=== PATIENT | female | born 1955 | race Caucasian/White ===

== ENCOUNTER 2016-07-22 09:39 | Outpatient (CLI) | payer OTHER ==
[~2016-07-22] VITALS: Ht 157.5 cm; Wt 53.5 kg
[2016-07-22] MEDS ORDERED: CHOL500049 PO (12:36)
[2016-07-22] MEDS ORDERED: LEVO75TA6 PO (12:36)
[2016-07-22] MEDS ORDERED: LACT1CAP39 PO (12:36)
[2016-07-23] MEDS ORDERED: HYDR-3812 PO (13:06)
== END 2016-07-22 12:41 ==
LOC: PREOP 09:39
PROVIDERS: ATTEND Surgery
DX: Z01.818 Encounter for other preprocedural examination (principal); K80.20 Calculus of gallbladder without cholecystitis without obstruction

== ENCOUNTER 2016-07-23 09:43 | Day surgery (SDC) | payer OTHER ==
[~2016-07-23] VITALS: Ht 157.5 cm; Wt 53.5 kg
[~2016-07-23 09:43] MED LIST: CHOL500049 PO; LACT1CAP39 PO; LEVO75TA6 PO
[2016-07-23] MEDS ORDERED: BUP/EPI 0.25% 1:200,000 (MARCAINE) 30 ML VIAL ONE (09:59)
[2016-07-23] MEDS ORDERED: SCOPOLAMINE 1.5 MG (TRANSDERM-SCOP) PATCH ONE (10:08)
[2016-07-23] MEDS ORDERED: ONDANSETRON 4 MG/2 ML (SDV) Z0FRAN ONE (10:08)
[2016-07-23] MEDS ORDERED: ceFAZolin 1,000 MG (ANCEF) VIAL ONE (10:08)
[2016-07-23] MEDS ORDERED: metroNIDAZOLE 500MG/100ML IVPB 100 ML ONE (10:09)
[2016-07-23] MEDS ORDERED: NS (IVPB) 50 ML ONE (10:09)
[2016-07-23] MEDS ORDERED: FAMOTIDINE 20MG/2ML IV (PEPCID) ONE (10:09)
[2016-07-23] MEDS ORDERED: LIDOCAINE PF 2% 10 ML (XYLOCAINE) AMP ONE (10:12)
[2016-07-23] MEDS ORDERED: DEXAMETHASONE PF 10 MG/ML (DECADRON) VIAL ONE (10:12)
[2016-07-23] MEDS ORDERED: proPOfol 200 MG/20 ML (DIPRIVAN) VIAL IV ONE (10:12)
[2016-07-23] MEDS ORDERED: MIDAZOLAM 2 MG/2 ML (VERSED) VIAL ONE (10:12)
[2016-07-23] MEDS ORDERED: ROCURONIUM 50 MG/5 ML (ZEMURON) VIAL IV ONE (10:12)
[2016-07-23] MEDS ORDERED: fentaNYL INJECTION 250 MCG/5 ML AMP ONE (10:12)
[2016-07-23] MEDS ORDERED: SEVOFLURANE (ULTANE) 15 ML INHAL SOLN ONE (10:12)
[2016-07-23] MEDS ORDERED: FAMOTIDINE 20MG/2ML IV (PEPCID) IV ONE (10:15)
[2016-07-23] MEDS ORDERED: ONDANSETRON 4 MG/2 ML (SDV) Z0FRAN IV ONE (10:15)
[2016-07-23] MEDS ORDERED: SCOPOLAMINE 1.5 MG (TRANSDERM-SCOP) PATCH TOP ONE (10:15)
[2016-07-23] MEDS: LACTATED RINGERS 1,000 ML IV PRN ×3 (10:19→12:50)
[2016-07-23 10:41] VITALS: BP 142/64
[2016-07-23] MEDS ORDERED: ceFAZolin 1 GM/NS 50 ML IVPB IV ONE ×2 (10:45)
[2016-07-23] MEDS ORDERED: metroNIDAZOLE 500 MG/100 ML IVPB (PRE-MIX) IV ONE (10:45)
--- NOTE | 2016-07-23 10:48 | Progress Note-Pre Operative ---
Pre-Operative Progress Note H&P Reviewed The H&P was reviewed, patient examined and no changes noted. Date H&P Reviewed: Jul 23, 2016 Time H&P Reviewed: 10:48 Pre-Operative Diagnosis: Gallstone pancreatitis VÍCTOR BREWER MD Jul 23, 2016 10:48 am
[2016-07-23] MEDS ORDERED: LACTATED RINGERS 1,000 ML IV ONE ×2 (11:13→12:38)
[2016-07-23] MEDS ORDERED: NEOSTIGMINE (BLOXIVERZ ) 1 MG/1ML 10 ML VIAL ONE (12:43)
[2016-07-23] MEDS ORDERED: GLYCOPYRROLATE 0.2 MG/ML (ROBINUL) 2 ML VIAL ONE (12:43)
[2016-07-23] MEDS ORDERED: fentaNYL INJECTION 100 MCG/2 ML AMP IV PRN (13:00)
[2016-07-23] MEDS ORDERED: PROMETHAZINE INJ 25 MG/ML (PHENERGAN) AMP IV PRN (13:00)
[2016-07-23] MEDS ORDERED: ONDANSETRON 4 MG/2 ML (SDV) Z0FRAN IV PRN (13:00)
[2016-07-23] MEDS ORDERED: HYDR-3812 PO (13:06)
--- NOTE | 2016-07-23 13:06 | Progress Note-Post Operative ---
Post-Operative Progess Note Surgeon (s)/Cannon Crewmember (s) Surgeon VÍCTOR BREWER MD Cannon Crewmember: first coat sander Gretel Pre-Operative Diagnosis Gallstone pancreatitis Post-Operative Diagnosis same Post-Op Procedure Note Date of Procedure: Jul 23, 2016 Name of Procedure Performed: robotic-assisted cholecystectomy Cholangiogram Description of the Procedure: see operative note Findings of the Procedure elongated gallbladder with gallstones. Anesthesia Type Gen. Estimated blood loss (mL): minimal Specimen(s) collected/removed gallstones VÍCTOR BREWER MD Jul 23, 2016 1:06 pm
--- NOTE | 2016-07-23 13:08 | Discharge Inst-Simple/Standard ---
Discharge Inst-Standard Discharge Medications New, Converted or Re-Newed RX: RX on Chart Patient Instructions/Follow Up Plan of Care/Instructions/FU: ddressings off in 48 hours. Incentive spirometry. Follow-up in 2 weeks. Activity as Tolerated: Yes Discharge Diet: No Restrictions VÍCTOR BREWER MD Jul 23, 2016 1:07 pm
[2016-07-23] MEDS ORDERED: morphine INJ 4 MG/ML 1 ML (VIAL/SYRINGE) ONE ×2 (13:13→13:26)
[2016-07-23] MEDS: morphine INJ 10 MG/ML 1ML (SYR OR VIAL) IV PRN ×2 (13:17→13:30)
[2016-07-23 13:55] VITALS: BP 163/77
--- NOTE | 2016-07-23 14:17 | OPERATIVE REPORT ---
PROCEDURE PHYSICIAN: VÍCTOR BREWER DATE OF PROCEDURE: 07/23/2016 PREOPERATIVE DIAGNOSIS: Gallstone pancreatitis. POSTOPERATIVE DIAGNOSIS: Gallstone pancreatitis. OPERATION: 1. Robotic assisted cholecystectomy. 2. Intraoperatively cholangiogram. SURGEON: Eugene. ANESTHESIA: General anesthesia. BLOOD LOSS: Minimal. FLUIDS: 1300 mL of crystalloids. TYPE OF WOUND: Type II (clean-contaminate wound). INDICATION FOR THE PROCEDURE: This lady presented with gallstone pancreatitis. She was therefore offered prompt cholecystectomy using minimally invasive technique with robotic assistance and cholangiogram. Should stones be found in the common bile duct, the requirement for postoperative ERCP was highlighted. With regard to the operative procedure itself, complications of wound infection and bile leak were discussed with her. DESCRIPTION OF PROCEDURE: She was placed supine on the operative table and general anesthesia induced using an endotracheal tube. A gram of Ancef and 500 mg of Flagyl were administered intravenously as prophylaxis against wound infection. Sequential compression devices were placed around her legs, to minimize the risk of venous thrombosis. Abdomen was prepared and draped in the usual sterile manner. A subumbilical incision was made and pneumoperitoneum established using a Veress needle, using carbon dioxide insufflation. Intra-abdominal pressure was maintained at 15 mmHg. A 12 mm trocar was placed and anatomy visualized using the high definition, 3 dimensional laparoscope associated with da [employer] system. Under direct view, I placed an 8 mm cannula over each side of the abdomen, followed by a 5 mm trocar over the left subcostal region. The patient was then turned in reverse Trendelenburg position with the right side tilted up. The robotic system was then docked in place. Laparoscopic survey confirmed an elongated gallbladder with multiple stones. The fundus was retracted cephalad and the infundibulum grasped with the robotic Cadiere forceps. Peritoneum overlying Calot's triangle was incised using hook cautery, delineating the cystic duct and artery. Cholangiogram was obtained using a Taut catheter. During the transition, in preparation for cholangiogram, the robotic arm, malfunctioned. Therefore, we proceeded in the conventional laparoscopic technique. The study confirmed a slightly dilated common bile duct without any filling defects. The contrast flowed freely into the duodenum. The proximal biliary tree could not be opacified. The catheter was then removed and the cystic duct controlled using Ligaclips. The cystic artery was divided between clips as well. Cholecystectomy was then completed using cautery. Intra-abdominal pressure was reduced to 11 mmHg, looking for bleeding from the liver. A few areas were encountered and controlled easily using cautery. The gallbladder was then placed in an Endo Catch bag and removed via the subumbilical trocar site. The fascia over this incision was closed using number 1 Vicryl. The skin was closed using 4-0 Vicryl, in a subcuticular fashion. 0.25% Marcaine with epinephrine was infiltrated along the incisions, both preemptively and at the conclusion of the operation. She tolerated the procedure well, was extubated in the operating room and taken to the recovery room in a stable condition. [place], sponges, and instruments were correct at the end of the operation. Job ID: [id number] Dictated Date: 07/23/2016 13:05:00 Graduate Teaching Associate Date: 07/23/2016 14:10:15 / neema PELLETIER
[2016-07-23] MEDS ORDERED: HYDROcodone/APAP 5 MG/325 MG (LORTAB) TAB ONE (14:22)
[2016-07-23 14:25] VITALS: BP 173/73
[2016-07-23] MEDS ORDERED: HYDROcodone/APAP 5 MG/325 MG (LORTAB) TAB PO ONE (14:45)
[2016-07-23 14:55] VITALS: BP 161/68
[2016-07-23 15:25] VITALS: BP 161/68
--- NOTE | 2016-07-23 17:00 | Diagnostic Imaging Report ---
Intraoperative cholangiogram performed by Dr. Knight. INDICATION: Abdominal pain. Laparoscopic cholecystectomy. 1 minute and 4 seconds of fluoroscopy time utilized. 30 cc of contrast utilized. FINDINGS: There is relatively low insertion of the cystic duct on the CBD. The CBD is at the upper limits of normal in caliber. No filling defects are seen to suggest a stone. There is prompt emptying of contrast into the second portion of duodenum. IMPRESSION: No evidence of CBD, stones or obstruction. Dictated by: Dictated on workstation # [id number]
== END 2016-07-23 15:25 | disposition home or self-care (01) ==
LOC: SDC 09:43
PROVIDERS: ATTEND Surgery
DX: K85.10 Biliary acute pancreatitis without necrosis or infection (principal); K81.1 Chronic cholecystitis
CPT/HCPCS: 87081; 88304